=== PATIENT | male | born 1995 | race Caucasian/White ===

== ENCOUNTER 2017-02-10 01:19 | Emergency (ER) | payer OTHER ==
[~2017-02-10] VITALS: Ht 167.6 cm; Wt 81.8 kg
[2017-02-10] MEDS ORDERED: AUGM875T28 PO (06:29)
[2017-02-10] MEDS ORDERED: IBUP80TA PO (06:29)
[2017-02-10] MEDS ORDERED: IBUPROFEN 800 MG TAB PO ONE (06:30)
[2017-02-10] MEDS ORDERED: AUGMENTIN 875 MG TAB PO ONE (06:30)
[2017-02-10 06:32] VITALS: BP 132/74
== END 2017-02-10 06:38 | disposition home or self-care (01) ==
LOC: M ED 01:19
DX: J02.9 Acute pharyngitis, unspecified (principal)